=== PATIENT | female | born 1985 | race Caucasian/White ===

== ENCOUNTER 2019-07-09 12:30 | Emergency (ER) | payer MEDICAID, SELFPAY ==
[2019-07-09] VITALS (12 sets, daily range): BP systolic 111–139; BP diastolic 74–93; PULSE 83–98; RESP 15–26; TEMP 36.2–36.5; O2SAT 96–100; BMI 25.7
--- NOTE | 2019-07-09 12:36 | RAD_ITS ---
STUDY: X-RAY CHEST REASON FOR EXAM: Female, 34 years old. visual migraine evolved into 2 minute seizure -- 3 days post TECHNIQUE: AP COMPARISON: None. FINDINGS: EKG leads project over the chest. There is a linear density projecting over the medial left chest. The lungs are clear and expanded. There is no demonstrated pleural abnormality. Normal size heart. Normal mediastinum and alcon. Normal visualized pulmonary arteries. Normal visualized aortic arch and descending thoracic aorta. Normal visualized thoracic spine. Normal visualized ribs, clavicles, and shoulders. There is no demonstrated abnormality of the visualized soft tissue structures of the upper abdomen. RAD/Chest 1 View (Portable) IMPRESSION: 1. No airspace consolidation or pleural effusion. 2. Linear density projecting over the medial left chest likely on the patient will recommend correlating with physical exam/history. Electronically Signed: Gonzales Buitrago MD (Brooks) at 14:01 EDT , Service support ,
--- NOTE | 2019-07-09 12:36 | CT_ITS ---
STUDY: CT BRAIN WITHOUT CONTRAST REASON FOR EXAM: Female, 34 years old. NEW SEIZURE--POST X3 DAYS -- HX- SEIZURE POST W/ 1ST BABY RADIATION DOSAGE (If Supplied By Facility): CTDIvol = ( 44.99 ) mGy, DLP = ( 762.36 ) mGycm TECHNIQUE: Transaxial CT imaging of the brain was performed without administration of intravenous contrast material. Individualized dose optimization techniques were used for this CT. COMPARISON: No relevant priors. FINDINGS: Normal soft tissue structures. Normal calvarium. Normal size ventricles and extra-axial spaces for the patient''s age. Normal white matter tracts of the cerebral hemispheres. Normal basal ganglia and thalami. Normal brainstem. Normal cerebellum. There is no intracranial hemorrhage. There are no findings of an acute ischemic infarction. Normal visualized paranasal sinuses. CT/Brain/Head without Contrast IMPRESSION: Normal unenhanced CT scan of the brain. Electronically Signed: Gonzales Buitrago MD (Brooks) at 14:04 EDT , Service support ,
--- NOTE | 2019-07-09 12:36 | EKG12_ITS ---
Test Reason : Blood Pressure : / mmHG Vent. Rate : 094 BPM Atrial Rate : 094 BPM P-R Int : 130 ms QRS Dur : 088 ms QT Int : 380 ms P-R-T Axes : 074 072 037 degrees QTc Int : 475 ms Normal sinus rhythm Normal ECG Confirmed by LIZ MILES MD ([id number]), news videotape editor ALLY THOMAS ([id number]) on 07/12/2019 3:05:37 PM Referred By: JOSE GUADALUPE Confirmed By:LIZ MILES MD
[2019-07-09 12:46] LABS: Absolute Lymphocyte Count 1.25 X10^3/uL (0.83-4.51); Absolute Neutrophil Count 3.4 X10^3/uL (2.0-7.7); Basophil# 0.03 X10^3/uL; Basophil% 0.5 % (0-1); Eosinophil# 0.54 X10^3/uL; Eosinophils% 9.3 % (0-5); Hematocrit 36.4 % (37-47); Hemoglobin 11.7 g/dL (12.0-15.0); Lymphocyte # 1.25 X10^3/ul (4.0); Lymphocyte % 21.5 % (19-41); Mean Corp Hgb Conc 32.1 g/dL (32-36); Mean Corpuscular Hgb 29.4 pg (27.0-32.0); Mean Corpuscular Volume 91.5 fL (81-99); Mean Platelet Vol. 11.7 fl (6.2-12.0); Monocyte% 8.6 % (0-10); NRBC Flagged by Analyzer 0 % (0-5); Neutrophil # 3.42 X10^3/uL (2.7-7.7); Neutrophil % 58.9 % (47-70); Platelet Count 192 K/mm3 (150-450); RBC Distribution Width SD 46.1 fl (35.1-43.9); Red Blood Count 3.98 M/mm3 (4.2-5.4); White Blood Count 5.8 K/mm3 (4.4-11.0)
[2019-07-09 12:53] LABS: International Normalized Ratio 0.9; Prothrombin Time (Protime)PT. 11.8 SECONDS (11.7-14.9)
[2019-07-09 12:54] LABS: Partial Thromboplast Time 26.3 Seconds (24.1-36.2)
[2019-07-09] MEDS: 0.9% Normal Saline 1,000 ML 1000 ML IV (12:54)
[2019-07-09] MEDS: Magnesium Sulfate 4gm/100mL 4 GM/100 ML IV.SOLN. IV (12:54)
--- NOTE | 2019-07-09 13:02 | ED.VIS.GEN ---
History of Present Illness Chief Complaint: Seizure Informant: Patient, Area Relief Pilot Onset: Today Timing: Intermittent Narrative: Patient is a 34-year-old female that is 3 days , delivered at [facility] presenting with seizure activity. Patient did have preeclampsia and is currently on labetalol. Labetalol dose was actually increased yesterday. Patient did have a eclamptic seizure after her prior delivery as well. Patient denies any other complaints at this time. She is currently breast-feeding. Patient lives in [place] however her mother lives in [place] and her partner and family were staying with her mother for the next few weeks for help with the children. Delivered with Dr. Arana. She actually delivered on Thursday07.04.19. Patient was back in the hospital at [facility] on the and the for preeclampsia. At that time her AST and ALT were both 71. This is relayed to me by Dr. Arana. Past Medical History - Allergies and Home Meds Allergies/Adverse Reactions: Allergies aspirin Adverse Reaction (Verified 07/09/19 12:37) Anaphylaxis Primary Care Physician: ANGEL MARTIN [Other] Past Medical History: - - History of eclampsia Lives: With Family Review of Systems General: Denies: Chills, Fever, Sweats Eyes: Denies: Visual changes - bilaterally, Diplopia ENT: Denies: Rhinorrhea, Sore throat Cardiovascular: Denies: Chest pain, Palpitations Respiratory: Denies: Dyspnea, Cough, Dyspnea on exertion Gastrointestinal: Denies: Abdominal pain, Nausea, Vomiting, Diarrhea, Melena, Hematochezia Genitourinary: Denies: Dysuria, Hematuria, Frequency Musculoskeletal: Denies: Back pain, Extremity Pain Skin: Denies: Rash, Wounds Neurological: Reports: - - Seizure-like activity. Denies: Headache, Weakness, Numbness Physical Exam Vital Signs/Narrative: Vital Signs Temp Pulse Resp BP Pulse Ox 07/09/19 12:32 97.1 F L 85 17 117/80 97 Inital Vital Signs reviewed: Yes General: Well nourished, Well developed, No Acute Distress Head: Normocephalic, Atraumatic Eyes: Perrl, EOMI ENT: Moist mucous membranes, No rhinorrhea Neck: Supple, Nontender Cardiovascular: Regular rate, Regular rhythm, No murmurs Respiratory: No distress, CTA bilaterally, Chest nontender Abdomen: Soft, Nontender, Nondistended, Normal bowel sounds, - - Gravid abdomen with uterus below the umbilicus Back: Nontender, Normal Inspection Extremities: Nontender, No edema Skin: Normal color, No rash Neurological: Alert, Oriented x3, Cranial nerves II-XII grossly intact, Normal Strength, Normal Sensation, - - Has a witnessed 1 minute episode of generalized tonic-clonic seizure activity that resolved spontaneously. Psychological: Normal affect, Normal Mood Diagnostic/Tx/Re-eval Clinical Impression(s) from Imaging Studies Brain CT 07/09/19 12:36 IMPRESSION: Normal unenhanced CT scan of the brain. Electronically Signed: Gonzales Buitrago MD (Brooks) at 14:04 EDT , Service support , Chest X-Ray 07/09/19 12:36 IMPRESSION: 1. No airspace consolidation or pleural effusion. 2. Linear density projecting over the medial left chest likely on the patient will recommend correlating with physical exam/history. Electronically Signed: Gonzales Buitrago MD (Brooks) at 14:01 EDT , Service support , Laboratory Data 07/09/19 07/09/19 07/09/19 12:33 12:33 12:33 WBC 5.8 RBC 3.98 L Hgb 11.7 L Hct 36.4 L MCV 91.5 MCH 29.4 MCHC 32.1 RDW Std Deviation 46.1 H RDW Coeff of Carmencita 14.0 Plt Count 192 MPV 11.7 Immature Gran % (Auto) 1.200 H Neut % (Auto) 58.9 Lymph % (Auto) 21.5 [place]osa % (Auto) 8.6 Eos % (Auto) 9.3 H Baso % (Auto) 0.5 Absolute Neuts (auto) 3.4 Absolute Lymphs (auto) 1.25 Nucleated RBC % 0 PT 11.8 INR 0.9 APTT 26.3 Sodium 141 Potassium 4.1 Chloride 108 H Carbon Dioxide 24.0 Anion Gap 9 BUN 9 Creatinine 0.84 Estim Creat Clear Calc 81.49 Est GFR (MDRD) Af Amer 100 Est GFR (MDRD) Non-Af 83 BUN/Creatinine Ratio 10.8 Glucose 95 Calcium 9.3 Total Bilirubin 0.40 Direct Bilirubin 0.18 AST 135 H ALT 152 H Alkaline Phosphatase 147 H Total Protein 6.8 Albumin 2.7 L Globulin 4.1 - Medical Decision Making Patient is evaluated for seizure. She has a second seizure in the emergency room. Her presentation is highly concerning for eclampsia. She is initially loaded with 4g of Magnesium over 20 minutes. Discussed the case with her COMMISSARY CLERK, Dr. Arana. She recommends a total of 6 g load and then 2 g/h after that. Her COMMISSARY CLERK recommend she go to maternal medicine higher level of care at [facility]. Discussed the case with Dr. Hodges who accepts the patient. Patient's lab work is remarkable for transaminitis is to be slightly worsened than 2 days ago. She has normal platelet count. CT of the head is obtained. Does not show any acute process. Patient does not have any further seizure activity in the emergency room. She is agreeable with plan. She is transferred in stable condition. ED Disposition - Plan for ED Patient: Disposition: Acute Care Hospital - Other Diagnosis: Eclampsia, Seizure, Transaminitis Referrals: ANGEL MARTIN [Other]
[2019-07-09 13:04] LABS: AST(SGOT) 135 U/L (15-37); Alanine Aminotransfer ALT/SGPT 152 U/L (13-56); Albumin, Serum 2.7 g/dL (3.2-5.0); Alkaline Phosphatase 147 U/L (45-117); Anion Gap 9 (5-15); BUN 9 mg/dL (7-18); BUN/Creat Ratio 10.8 RATIO (10-20); Bilirubin, Direct 0.18 mg/dL (0.00-0.30); Calcium,Total 9.3 mg/dL (8.5-10.1); Chloride 108 mmol/L (98-107); Creatinine, Serum 0.84 mg/dL (0.55-1.02); EST Glomerular Filtration Rate 83 mL/min (>60); Est Glom Filt Rate - Afr Amer 100 mL/min (>60); Estimated Creatinine Clearance 81.49 ml/min; Globulin 4.1 g/dL (2.2-4.2); Glucose 95 mg/dL (74-106); Potassium 4.1 mmol/L (3.5-5.1); Protein, Total 6.8 g/dL (6.4-8.2); Sodium Level 141 mmol/L (136-145)
--- NOTE | 2019-07-09 13:15 | ED.RN ---
Christina SANTIAGO from OB at bedside. Patellar DTR on right leg 2+, left leg 3+. Clonus absent on both right and left feet.
--- NOTE | 2019-07-09 13:21 | NURSING ---
1300 PAGED [facility] OB FROM [facility]. 1324 OB RETURNED CALL
[2019-07-09] MEDS: Magnesium Sulfate 4gm/100mL 2 GM/50 ML IV.SOLN. IV (13:58)
[2019-07-09] MEDS: Magnesium Sulfate 20 GM/500 ML BAG IV (14:16)
--- NOTE | 2019-07-09 14:18 | NURSING ---
CALLED [facility], ETA IS 70 MIN
--- NOTE | 2019-07-09 14:50 | ED.RN ---
retrieved hand breast pump from OB for patient. Pt denies any additional needs.
--- NOTE | 2019-07-09 15:10 | ED.RN ---
transport at bedside. report given. denies questions or needs.
--- NOTE | 2019-07-09 15:43 | ED.RN ---
Pt observed being taken out of department by transport without Magnesium infusion running or even attached to patient. This RN asked why magnesium was not hooked up, transport staff states they have to use special extension tubing and that he will hook it up in the back of the squad. This RN explained the importance of the magnesium infusion and that he cannot just stop it. Charge nurse and Janie Montemayor notified.
== END 2019-07-09 15:46 | disposition short-term general hospital (02) ==
PROVIDERS: Emergency Provider Emergency Medicine
DX: O15.2 Eclampsia complicating the puerperium (principal); Z88.6 Allergy status to analgesic agent; R74.0 Nonspecific elevation of levels of transaminase and lactic acid dehydrogenase [LDH]
CPT/HCPCS: 70450; 71045; 80048; 80076; 85025; 85610; 85730; 93005; 96360; 96361; 99285; J7030; J7050; A4216